=== PATIENT | male | born 1945 | race Caucasian/White ===

== ENCOUNTER 2017-01-22 06:27 | Day surgery (SDC) | payer MEDICARE, OTHER ==
[2017-01-22] MEDS ORDERED: ceFAZolin 1 GM in NORMAL SALINE MINI-BAG+ 100 ML IV ONE (06:32)
[2017-01-22] MEDS ORDERED: LIDOCAINE HCL 1% 20 ML VIAL SUBCUT ONE (06:48)
[2017-01-22] MEDS: LACTATED RINGERS 1,000 ML IV SCH (07:01)
[2017-01-22] MEDS: FAMOTIDINE IN SALINE, ISO-OSM 20 MG/50 ML PIGGYBACK IV SCH (07:01)
[2017-01-22] MEDS: ACETAMINOPHEN 1,000 MG/100 ML VIAL IV SCH (07:06)
[2017-01-22] MEDS: ceFAZolin 1 GM in NORMAL SALINE MINI-BAG+ 100 ML IV ONE (07:06)
[2017-01-22] MEDS ORDERED: ACETAMINOPHEN 1,000 MG/100 ML VIAL IV ONE (07:10)
[2017-01-22] MEDS ORDERED: FAMOTIDINE IN SALINE, ISO-OSM 50 ML IV ONE (07:10)
[2017-01-22] MEDS ORDERED: FENTANYL 250 MCG/5 ML VIAL ONE (07:10)
[2017-01-22] MEDS ORDERED: MIDAZOLAM HCL 2 MG/2 ML VIAL ONE (07:11)
[2017-01-22] MEDS ORDERED: ONDANSETRON HCL 4 MG/2 ML VIAL ONE (07:11)
[2017-01-22] MEDS ORDERED: ceFAZolin 1 GM/10 ML VIAL ONE (07:11)
[2017-01-22] MEDS ORDERED: BACITRACIN 14 APP/14 GM TUBE TOPICAL ONE (07:12)
[2017-01-22] MEDS ORDERED: BUPIVACAINE/EPI 0.25% 1 VIAL VIAL ONE (07:12)
[2017-01-22] MEDS ORDERED: LIDOCAINE HCL 2% 20 ML VIAL ONE (07:13)
[2017-01-22] MEDS: MIDAZOLAM HCL 2 MG/2 ML SYR IV ONE (07:17)
[2017-01-22] MEDS ORDERED: SUCCINYLCHOLINE CHLORIDE 200 MG/10 ML VIAL ONE (07:47)
[2017-01-22] MEDS ORDERED: DEXAMETHASONE 10 MG/ML VIAL ONE (07:54)
[2017-01-22] MEDS ORDERED: EPHEDrine SULFATE 50 MG/ML VIAL ONE (08:41)
[2017-01-22 09:27] VITALS: TEMP 97.5
[2017-01-22 09:28] VITALS: RESP 16; O2SAT 95
[2017-01-22 09:29] VITALS: BP 145/88; PULSE 72
--- NOTE | 2017-01-22 15:34 | OPERATIVE REPORT ---
DATE OF SURGERY: 01/22/17 SURGEON: Adán Chan DO ANESTHESIA: General. PREOPERATIVE DIAGNOSIS: Right knee medial meniscal tear. 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 Loose body in the anterior lateral compartment. OPERATION PERFORMED: Right knee arthroscopy with partial medial and lateral meniscectomy and abrasion chondroplasty. ESTIMATED BLOOD LOSS: Minimal. TOTAL TOURNIQUET TIME: 55 minutes. PROCEDURE NOTE: The patient was brought to the operating room suite and after administration of general anesthesia the right lower extremity was prepped and draped in a sterile fashion. All bony prominences were well padded. The leg was positioned in a well-padded leg kendall and a well padded tourniquet was also applied to the right proximal thigh. The anterior lateral portal was created first after injecting 0.25% bupivacaine with epinephrine. The medial portal was created under direct visualization after first inserting a spinal needle. The diagnostic arthroscopy revealed the above findings. The medial and lateral menisci were saucerized and debrided with a oscillating shaver and arthroscopic biting instruments. The loose body was removed with a arthroscopic grasper. The areas of chondromalacia were smoothed out with the oscillating shaver. The anterior cruciate ligament and posterior cruciate ligament were in good condition as were the articular surfaces of the lateral compartment. The medial compartment had chondrocalcinosis and grade 3 chondromalacia of the medial femoral condyle. The majority of the patella was in good condition with the exception of the superior facet which had grade 4 chondromalacia. There was no chondromalacia of the trochlea as it was in good condition. After performing all the soft tissue resections and debridements, the knee was drained of all arthroscopic fluid and was closed utilizing simple interrupted 3-0 nylon. The knee was injected with 10 mg of Dexamethasone along with 5 mL of 0.25% bupivacaine with epinephrine. The incisions were dressed with bacitracin ointment, Xeroform, 4x4s, ABDs, cast padding, and an Nnamdi bandage. The patient was transferred from the operating room suite to the recovery room in stable condition. SHERINE
--- NOTE | 2017-01-28 15:12 | PREOPERATIVE H&P ---
History of Present Illness (Adán Chan DO; 01/15/2017 12:00 PM) The patient is a 71 year old male. Patient presents complaining of persistent right knee pain after sustaining a meniscal injury while skiing a few months ago. He does have an MRI which demonstrates meniscal tear. He is experiencing clicking in the knee with pain and swelling. 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 Vera Nondisplaced fracture of distal phalanx of left great toe, initial encounter ( S92.425A) Actinic keratoses (L57.0) Dr Bowen Laceration of right axillary artery (S45.011A)1995 Gortex Repair and Removal R Medial Clavicle S/P Fall [place] PTSD (post-traumatic stress disorder) (F43.10)1995 Acetabulum fracture, right (S32.401A)2014 Dr Chan Allergies (Adán Chan DO; 01/15/2017 12:01 PM) HydrOXYzine HCl *ANTIANXIETY AGENTS* Sleepiness Family History (Adán Chan DO; 01/15/2017 12:01 PM) Father Dementia; @ 97 Mother @ 89 of Breast cancer, CHF Social History (Adán Chan DO; 01/15/2017 12:01 PM) Smoke Detectors Present Marital status . Medical P.O.A. 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 Alcohol Use Occasional alcohol use. Advance Planning Medical Power of Track Supervisor, Full Code. 12/2016, Organ Donor 2010 Seat Belt Worn Tobacco Use Never smoker. Past Surgical History (Adán Chan DO; 01/15/2017 12:01 PM) [id number] Dr Ordoñez R Eye Retinal Tear [id number] x2, Dr Ordoñez Health Maintenance History (Adán Chan DO; 01/15/2017 12:01 PM) Colonoscopy 2007; repeat 2017 ETT Pt declines DEXA Pt declines Eye Care Dr. Cartwright Review of Systems (Adán Chan DO; 01/15/2017 12:01 PM) General Not Present- Chills and Fever. Skin Not Present- Erythema, Skin Color Changes and Skin Problems. HEENT Not Present- Sleep Apnea. Neck Not Present- Neck Pain. Respiratory Not Present- Cough and Shortness of Breath. Cardiovascular Not Present- Chest Pain, Difficulty Breathing On Exertion, Fainting and Leg Pain and/or Swelling. Gastrointestinal Not Present- Abdominal Pain, Nausea and Vomiting. Male Genitourinary Not Present- Painful Urination and Urethral Discharge. Musculoskeletal Not Present- Decreased Range of Motion, Joint Pain, Joint Stiffness, Joint Swelling, Muscle Pain and Muscle Weakness. Neurological Not Present- Dizziness, Focal Neurological Symptoms, Numbness in extremities, Trouble walking and Weakness. Psychiatric Not Present- Anorexia, Anxiety and Depression. Endocrine Not Present- Weight Loss. Hematology Not Present- Bleeding Problems, DVT and Easy Bruising. Vitals (Adán Chan DO; 01/15/2017 12:01 PM) 01/15/2017 12:01 PM Temp.: 97.8F Pulse: 88 (Regular) Resp.: 16 (Unlabored) BP: 140/74 (Sitting, Left Arm, Standard) Physical Exam (Adán Chan DO; 01/15/2017 12:03 PM) Physical examination of the RIGHT knee demonstrates no skin defects with normal appearance, color and temperature. There is no effusion. There is no swelling or edema. The peripheral neurovascular status is intact with normal sensation and adequate perfusion. Patella grind is negative with no crepitance. Both flexion and extension are +5/5 for strength. Range of motion is from 0 of extension to 130 of flexion with no pain at full flexion. There is no crepitance with range of motion. There is no medial or lateral instability or laxity with varus and valgus moment at both 0 of extension and 30 of flexion. There is no anterior or posterior instability or laxity with a negative Zelalem's, negative anterior drawer and negative posterior drawer. There is no tenderness to palpation over the inferior pole of the patella, the tibial tubercle or the patella tendon. There is both medial and lateral joint line tenderness to palpation. Darius's test is +. MRI demonstrates obliquely oriented tears of the posterior horns of the medial and lateral menisci. Chondrocalcinosis is also noted in the medial and lateral meniscus both on the MRI and on plain film x-rays. Plain film x-rays demonstrate maintenance of the joint spaces with early arthritic changes. Extensive chondrocalcinosis also noted as mentioned above. Assessment & Plan (Adán Chan DO; 01/15/2017 12:04 PM) Degenerative tear of posterior horn of medial meniscus, right (M23.321) Impression: The patient has had a good trial of extensive physical therapy, activity modifications and NSAIDs which have not improved his knee symptoms. After educating the patient regarding treatment options with their associated risks and benefits, the patient elected to proceed with surgical treatment of the injury/pathology with RIGHT KNEE ARTHROSCOPY FOLLOWED WITH STEROID INJECTION. The risks and benefits of the specific procedure were explained and all questions and concerns were addressed and answered. Post operative rehabilitation requirements and expectations for optimal outcome were reviewed and the patient confirmed understanding these and committed to compliance. All questions answered. The patient will be optimized medically by consultation with their primary care physician prior to their procedure. Current Plans KNEE ARTHROSCOPY/SURGERY-meniscectomy, med or lat (85396) (right) Signed by Adán Chan DO (01/15/2017 12:04 PM) Patient seen and examined at bed side. No interval changes. Signed Adán Chan DO 01/22/2017. SHERINE
== END 2017-01-22 09:47 | disposition home or self-care (01) ==
LOC: EEVIPCON 06:27 → SDS 06:27
PROVIDERS: ATTEND Orthopaedic Surgery
DX: M23.321 Other meniscus derangements, posterior horn of medial meniscus, right knee (principal); F43.10 Post-traumatic stress disorder, unspecified; L57.0 Actinic keratosis
CPT/HCPCS: 29874; 29880; J0690; J1100; J2250; J2405